=== PATIENT | male | born 1995 | race Hispanic/Latino ===

== ENCOUNTER 2018-02-05 12:40 | Emergency (ER) | payer OTHER ==
[2018-02-05 12:48] VITALS: BP 133/84; PULSE 89; TEMP 98; O2SAT 100
--- NOTE | 2018-02-05 14:24 | RAD ---
PROCEDURE: Right Hand Radiographs. HISTORY: injury COMPARISON: None. FINDINGS: BONES: Bone alignment and mineralization are normal. There is no acute displaced fracture or bone destruction. JOINTS: Normal. SOFT TISSUES: Normal. OTHER FINDINGS: None. IMPRESSION: No acute displaced fracture or dislocation.
--- NOTE | 2018-02-05 14:28 | C.PDOC ---
History Of Present Illness 22 y/o male presents for evaluation of right hand pain and swelling with bruising over the thumb, developing since yesterday. States he sustained a mechanical fall, and broke the fall with his right hand. Otherwise he denies any obvious deformity, skin changes, upper extremity weakness, or sensorivascular deficits. Time Seen by Provider: 02/05/18 13:29 Chief Complaint (Nursing): Upper Extremity Problem/Injury History Per: Patient History/Exam Limitations: no limitations Onset/Duration Of Symptoms: Days Current Symptoms Are (Timing): Still Present Past Medical History Reviewed: Historical Data, Nursing Documentation, Vital Signs Vital Signs: Last Vital Signs Temp 98 F 02/05/18 12:45 Pulse 89 02/05/18 12:45 Resp 20 02/05/18 14:49 BP 133/84 02/05/18 12:45 Pulse Ox 100 02/05/18 16:06 - Medical History PMH: No Chronic Diseases Surgical History: Appendectomy Family History: States: No Known Family Hx - Social History Hx Tobacco Use: No Hx Alcohol Use: Yes Hx Substance Use: No - Immunization History Hx Tetanus Toxoid Vaccination: No Hx Influenza Vaccination: No Hx Pneumococcal Vaccination: No Review Of Systems Except As Marked, All Systems Reviewed And Found Negative. Musculoskeletal: Positive for: Hand Pain Skin: Negative for: Rash, Lesions Neurological: Negative for: Weakness, Numbness Physical Exam - Physical Exam Appears: Well, Non-toxic, No Acute Distress Skin: Normal Color, Warm Head: Atraumatic, Normacephalic Eye(s): bilateral: PERRL Extremity: Normal ROM (Right hand, no neurovascular deficits.), Tenderness ( over thenar area Right hand with mild edema and trace ecchymoses.), Capillary Refill (less than 2ec to Right hand), No Deformity Neurological/Psych: Oriented x3, Normal Speech, Normal Motor, Normal Sensation, Normal Reflexes ED Course And Treatment O2 Sat by Pulse Oximetry: 100 (RA) Pulse Ox Interpretation: Normal - Other Rad Right hand X-Ray: Interpreted by Me, Viewed By Me, Read By Radiologist Interpretation: (-) acute fx or dislocation Progress Note: On re-eval, pt is afebrile, hemodynamicaly stable. Non-toxic. Right hand: ecchymoses with mild edema to Right thenar area, no deformity. FAROM , no neurovascular deficits. Hand xray (-) acute fx or dislocation. Thumb spica applied. Pt advised. ref. to f/u with hand specialist in 2-3 days for re -eval. return if any new changes. Orthopedic Time Performed: 14:15 Time Out: Side verified, Site verified, Patient ID confirmed Procedure: Splint Type: Thumb spica Location: Right, Hand Consent obtained: Verbal Performed by: Mid-level Provider Diagnosis: Sprain Disposition Counseled Patient/Family Regarding: Studies Performed, Diagnosis, Need For Followup - Disposition Referrals: Edwardo Tate MD [Staff Provider] - Disposition: HOME/ ROUTINE Disposition Time: 14:20 Condition: STABLE Additional Instructions: Splint for 1 week Take Ibuprofen twice daily Follow up with hand specialist as need for further evaluation and treatment return if any new changes. Prescriptions: Ibuprofen [Motrin Tab] 600 mg PO BID #14 tab Instructions: Contusion (DC) Forms: [employer] (Irish) - Clinical Impression Clinical Impression: Hand contusion - PA / PROGRAM HOST / Resident Statement MD/DO has reviewed & agrees with the documentation as recorded. - Scribe Statement The provider has reviewed the documentation as recorded by the Scribe (Sarah Collier) All medical record entries made by the Scribe were at my direction and personally dictated by me. I have reviewed the chart and agree that the record accurately reflects my personal performance of the history, physical exam, medical decision making, and the department course for this patient. I have also personally directed, reviewed, and agree with the discharge instructions and disposition.
[2018-02-05 14:50] VITALS: RESP 20
== END 2018-02-05 14:49 | disposition home or self-care (01) ==
LOC: C.ER 12:40
DX: S60.221A Contusion of right hand, initial encounter (principal); W18.30XA Fall on same level, unspecified, initial encounter